=== PATIENT | female | born 2000 | race Caucasian/White ===

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

== ENCOUNTER 2024-03-20 03:00 | Inpatient (IN) | payer OTHER ==
[2024-03-20] MEDS: LACTATED RINGERS 1,000 ML IV SCH (03:10)
[2024-03-20] MEDS ORDERED: miSOPROStoL 200 MCG TAB PO PRN (03:14)
[2024-03-20] MEDS ORDERED: LIDOCAINE 0.5% (PF) 5 MG/ML (50 ML SDV) SQ PRN (03:14)
[2024-03-20] MEDS ORDERED: TRANEXAMIC 1,000 MG/100ML-NACL 1,000 MG in EMPTY BAG 1 BAG IV PRN (03:14)
[2024-03-20] MEDS ORDERED: TERBUTALINE 1 MG/ML VIAL SQ PRN (03:14)
[2024-03-20] MEDS ORDERED: OXYTOCIN 10 UNIT/ML 1 ML VIAL IM PRN (03:14)
[2024-03-20] MEDS ORDERED: METHYLERGONOVINE 0.2 MG/ML 1 ML AMP IM PRN (03:14)
[2024-03-20] MEDS ORDERED: CARBOPROST TROMETHAMINE 250 MCG/ML 1 ML AMP IM PRN (03:14)
[2024-03-20 03:34] LABS: Basophils % (A) 0 %; Eosinophils # (A) 0.2 k/uL (0-0.7); Eosinophils % (A) 1 %; HCT 30.2 % (34.0-46.0); HGB 9.9 gm/dL (11.4-16.0); Hypochromasia Slight; Lymphocytes # (A) 1.8 k/uL (1.0-4.8); Lymphocytes % (A) 13 %; MCH 27.6 pg (25.0-35.0); MCHC 32.7 g/dL (31.0-37.0); MCV 84.4 fL (80.0-100.0); Mean Platelet Volume 8.6; Monocytes # (A) 0.9 k/uL (0-1.0); Monocytes % (A) 6 %; Neutrophils # (A) 10.5 k/uL (1.3-7.7); Neutrophils % (A) 77 %; Platelet Count 279 k/uL (150-450); Poikilocytosis Slight; RBC 3.58 m/uL (3.80-5.40); RDW 15.2 % (11.5-15.5); WBC 13.7 k/uL (3.8-10.6)
[2024-03-20] MEDS ORDERED: NALBUPHINE 10 MG/ML (10 ML MDV) IV PRN (04:01)
[2024-03-20] MEDS ORDERED: OXYTOCIN 30 UNITS/500 ML NS BAG IV ONE (04:35)
[2024-03-20] MEDS ORDERED: MIDAZOLAM 2 MG/2 ML VIAL ONE (04:35)
[2024-03-20] MEDS ORDERED: fentaNYL (PF) 50 MCG/ML 2 ML AMP ONE (04:35)
[2024-03-20] MEDS ORDERED: PROPOFOL 10 MG/ML 20 ML VIAL IV ONE (04:35)
[2024-03-20] MEDS: miSOPROStoL 200 MCG TAB RECTAL PRN (05:00)
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
[2024-03-20] MEDS ORDERED: diphenhydrAMINE 50 MG/ML 1 ML VIAL IVP PRN ×2 (05:24)
[2024-03-20] MEDS ORDERED: SIMETHICONE 80 MG CHEWABLE PO PRN (05:24)
[2024-03-20] MEDS ORDERED: HYDROCORTISONE 2.5% RECTAL CREAM 30 GM TUBE RECTAL PRN (05:24)
[2024-03-20] MEDS ORDERED: diphenhydrAMINE 25 MG CAP PO PRN (05:24)
[2024-03-20] MEDS ORDERED: LANOLIN CREAM 1 GM TUBE TOPICAL PRN (05:24)
[2024-03-20] MEDS ORDERED: BENZOCAINE/MENTHOL SPRAY 1 GM/SPRAY AEROSOL TOPICAL PRN (05:24)
[2024-03-20] MEDS ORDERED: ZOLPIDEM 5 MG TAB PO PRN (05:24)
[2024-03-20] MEDS ORDERED: diphenhydrAMINE 50 MG CAP PO PRN (05:24)
--- NOTE | 2024-03-20 05:37 | P.PROBDLV ---
Vaginal Delivery Note - . Vaginal Delivery Note: Viable female delivered at 4 AM, weight of 6 pounds 3.8 ounces, Apgars of 8 and 9 at 1 and 5 minutes respectively. 3 para 1-1-0-3 presented to labor and delivery at 42 and 1 sevenths weeks with minimal care, patient had approximately 2 visits at [facility]. Patient did have a dating ultrasound giving an due date of 03/05, patient subsequently had a 19-week anatomy scan which was essentially normal with some limited findings secondary to position. Patient presented to labor and delivery stating she began rula around midnight, upon presentation to labor and delivery she was noted to be completely dilated. Patient was taken to labor and delivery suite where she began pushing, and had a successful vaginal after . The umbilical cord was doubly clamped and cut. Cord blood was then taken. Placenta was delivered in pieces, retained fundal placenta was appreciated on examination. Manual extraction was attempted after Nubain and nitrous were given to patient. I was unable to retrieve the fundal portion of the placenta therefore anesthesia was called for D&C for retained placenta. Patient was taken back to the operating suite where sedation was performed by the anesthesia department. She was prepped and draped in the normal sterile fashion in the dorsolithotomy position. A red rubber catheter was used to drain the bladder of clear yellow urine. A specimen was sent to lab for a UDS. A weighted speculum placed in the posterior vaginal vault the vaginal vault was cleared of multiple clots. The anterior lip of the cervix was visualized and grasped with a ring forcep. A sharp curette was used to remove the fundal pieces of placenta. Multiple passes of the curette were used to clear placental fragments from the uterus. Uterus was noted to be firm and below the umbilicus at this time. Lochia was noted to be appropriate for state. Upon inspection of the patient's vaginal vault a superficial labial laceration was appreciated hemostatic in nature. All instruments were removed from the patient's vaginal vault at this time. Patient was transferred back to labor and delivery suite.
--- NOTE | 2024-03-20 05:44 | P.PCN ---
Date of Procedure: 03/20/24 Preoperative Diagnosis: Retained placenta Postoperative Diagnosis: Same Procedure(s) Performed: Dilation curettage Anesthesia: MAC Surgeon: Jeannette Reed Estimated Blood Loss (ml): 300 Urine output (ml): 100 (Clear yellow via red rubber catheter) Pathology: other (Placenta) Condition: stable Disposition: observation Indications for Procedure: 24-year-old -1-0-3 that presented to labor and delivery in active labor. Patient subsequently had an successful vaginal delivery after section, placenta was noted to be adherent fundally. Upon delivery of the placenta only half was appreciated on manual extraction adherent fundal placenta was appreciated. Attempted manual extraction with nitrous and Nubain failed. Anesthesia was notified of need to proceed with D&C. Operative Findings: Adherent fundal placenta fragments appreciated on curettage Description of Procedure: Patient was taken back to the operating room where sedation was found to be adequate by the anesthesia department. She was prepped and draped in normal sterile fashion in the dorsal lithotomy position. Red recatheterized used to drain the bladder of clear yellow urine. Copious amounts of clots were removed from the patient's vaginal vault. Weighted speculum is placed in the posterior vaginal vault the Intralipid the cervix is visualized and grasped with a ring forcep. A curette was then placed through the cervix and toward the endometrial cavity multiple passes were used to remove multiple placental fragments. On manual extraction a large piece of placenta was removed followed by additional passes of the curette. The uterus was then noted to be firm and below the umbilicus. Cytotec was then placed rectally 1000 mcg. All instruments were removed from the patient's vaginal vault. On inspection the patient's vaginal vault superficial lacerations from delivery were appreciated all were hemostatic. All counts were noted be correct x 2. Patient tolerated procedure well and was taken back to her labor and delivery suite.
[2024-03-20] MEDS: OXYTOCIN 30 UNITS/500 ML NS 30 UNIT in SALINE 1 500ML.BAG IV SCH (05:45)
[2024-03-20] MEDS: LORazepam 0.5 MG TAB PO ONE (05:55)
[2024-03-20] MEDS: IBUPROFEN 800 MG TAB PO SCH (06:23)
[2024-03-20 07:12] LABS: Amphetamine Screen,Urine Detected (NotDetected); Barbiturate Screen,Urine Not Detected (NotDetected); Benzodiazepines Screen,Urine Not Detected (NotDetected); Cocaine Screen,Urine Not Detected (NotDetected); Methadone Screen, Urine Not Detected (NotDetected); Opiate Screen,Urine Detected (NotDetected); Oxycodone Screen, Urine Detected (NotDetected); Phencyclidine Screen,Urine Not Detected (NotDetected); Tricyclic Antidepressant,Urine Not Detected (NotDetected); Urn Cannabinoid Scrn Detected (NotDetected)
[2024-03-20 12:36] LABS: Basophils % (A) 0 %; Eosinophils % (A) 0 %; Hypochromasia Marked; Lymphocytes # (A) 2.4 k/uL (1.0-4.8); Lymphocytes % (A) 13 %; MCH 27.8 pg (25.0-35.0); Mean Platelet Volume 8.5; Monocytes # (A) 0.8 k/uL (0-1.0); Monocytes % (A) 5 %; Neutrophils # (A) 14.4 k/uL (1.3-7.7); Neutrophils % (A) 80 %; Platelet Count 245 k/uL (150-450); RBC 2.13 m/uL (3.80-5.40); RDW 15.5 % (11.5-15.5)
[2024-03-20 12:44] LABS: HGB 5.9 gm/dL (11.4-16.0)
[2024-03-20 12:45] LABS: HCT 18.6 % (34.0-46.0)
[2024-03-20] MEDS: SENNOSIDES-DOCUSATE SODIUM 1 EACH TAB PO SCH (13:01)
[2024-03-20] MEDS: ACETAMINOPHEN TAB 500 MG TAB PO SCH (13:01)
[2024-03-20 15:27] LABS: Hepatitis B Surface Antigen Nonreactive (Nonreactive)
[2024-03-20 20:04] LABS: HIV 2 AB Non-Reactive (Non-Reactive); HIV AB P24 Non-Reactive (Non-Reactive); HIV P24 AG Non-Reactive (Non-Reactive)
[2024-03-20 20:20] LABS: Basophils # (A) 0.1 k/uL (0-0.2); Basophils % (A) 0 %; Eosinophils # (A) 0.1 k/uL (0-0.7); Eosinophils % (A) 1 %; HCT 21.5 % (34.0-46.0); HGB 7.2 gm/dL (11.4-16.0); Hypochromasia Moderate; Lymphocytes % (A) 18 %; MCH 29.4 pg (25.0-35.0); MCHC 33.4 g/dL (31.0-37.0); MCV 87.9 fL (80.0-100.0); Mean Platelet Volume 8.5; Monocytes # (A) 0.8 k/uL (0-1.0); Monocytes % (A) 5 %; Neutrophils # (A) 12.6 k/uL (1.3-7.7); Neutrophils % (A) 74 %; Platelet Count 265 k/uL (150-450); RBC 2.44 m/uL (3.80-5.40); RDW 15.5 % (11.5-15.5); WBC 16.9 k/uL (3.8-10.6)
--- NOTE | 2024-03-21 08:45 | P.DS ---
Providers Date of admission: 03/20/24 03:14 Expected date of discharge: 03/21/24 Attending physician: Jeannette Reed Primary care physician: Stated None Hospital Course: Ms. Alvarado is a 24 year old now PPD#1 s/p vaginal delivery complicated by retained products of conception requiring D&C. Her immediate course was also complicated by hemorrhage for which she received IV oxytocin and Methergine. Her hemoglobin did drop from 9 to 5. She received 1 unit of packed RBCs and her Hgb is 7 now. She is asymptomatic, vital signs are stable. She does desire discharge home today. The patient is doing well this morning and had no acute events overnight. She has no complaints this morning. She reports minimal lochia, passing flatus, voiding without difficulty, ambulating, and eating/drinking without nausea or vomiting. is in the nursery for abstinence syndrome, likely for several days. She denies chest pain, shortness of breathing, fevers, or chills overnight. She denies pain or swelling in the legs. restrictions are reviewed with the patient including pelvic rest for 6 weeks. The patient is encouraged to call the office if she experiences any heavy bleeding, foul-smelling discharge, breast complaints, or any if she has any other concerns. She will follow up in the office with Dr. Saleh in 6 weeks for exam. She will have Motrin, Tylenol, iron, and stool softeners sent to her pharmacy. All questions are answered. Assessment: 24 year old now PPD#1 s/p vaginal delivery complicated by retained products and hemorrhage Patient Condition at Discharge: Good Plan - Discharge Summary New Discharge Prescriptions: New Ferrous Sulfate [Iron (65 MG Elemental)] 325 mg PO DAILY #30 tab Ibuprofen [Motrin] 600 mg PO Q6HR PRN #30 tab PRN Reason: Mild Pain (Scale 1 To 3) Acetaminophen Tab [Tylenol] 650 mg PO Q6H PRN #30 tab PRN Reason: Mild Pain (Scale 1 To 3) Docusate [Colace] 100 mg PO BID PRN #60 capsule PRN Reason: Constipation No Action HYDROcodone/APAP 5-325MG [[place] 5-325] 5 mg PO DAILY Discharge Medication List HYDROcodone/APAP 5-325MG [[place] 5-325] 5 mg PO DAILY 03/20/24 [History] Acetaminophen Tab [Tylenol] 650 mg PO Q6H PRN #30 tab 03/21/24 [Rx] Docusate [Colace] 100 mg PO BID PRN #60 capsule 03/21/24 [Rx] Ferrous Sulfate [Iron (65 MG Elemental)] 325 mg PO DAILY #30 tab 03/21/24 [Rx] Ibuprofen [Motrin] 600 mg PO Q6HR PRN #30 tab 03/21/24 [Rx] Follow up Appointment(s)/Referral(s): Stan Saleh MD [STAFF PHYSICIAN] - 6 Weeks Activity/Diet/Wound Care/Special Instructions: Instructions 1. Do not begin any exercise program for 3 weeks. 2. Do not resume sexual relations for 6 weeks or longer if uncomfortable. 3. You may take tub baths or showers at any time. 4. You may use tampons if desired after 6 weeks. 5. Keep any areas repaired with stitches clean and dry. 6. If you are not nursing, wear a good fitting, supportive bra during the day and limit fluid intake for at least 1 week to prevent breast engorgement. 7. Call the office, , within the next week to make appointment for your 6 week checkup if it has not already been made. 8. Report any of the following occurrences to the doctor promptly: a. Heavy, excessive bleeding b. Chills, fever c. Burning or frequency of urination d. Pain or redness and breasts if nursing e. Increasing pain or swelling of vulva (stitches). In addition to the above instructions, the following additional should be followed: 1. No heavy lifting or straining (exercising) until after 6 week checkup. 2. Keep abdominal incision clean and dry: You may wear a dressing if more comfortable. 3. Make office appointment for 2 weeks after delivery date. Discharge/Stand Alone Forms: Who Do I Call?, Outpatient Counseling, Area PCPs Discharge Disposition: HOME SELF-CARE
[2024-03-21 09:25] VITALS: BP 111/65; PULSE 95; RESP 18; TEMP 98.9
--- NOTE | 2024-03-23 19:13 | P.MSEPDOC ---
Presenting Problems - Arrival Data Date of Arrival on Unit: 03/20/24 Time of Arrival on Unit: 03:14 Mode of Transport: Ambulatory - Complaint OB-Reason for Admission/Chief Complaint: Possible Onset of Labor Comment: Patient arrived from home stating she is in labor, patient states that she lost her mucus plug earlier today and started rula regularly at 0000. Patient states she is bleeding vaginally and pain with contractions is 10/10. Patient states she seen DR. Saleh for care. Patient admited to norco and marijuana use in . Patient stated she just stopped seeing Dr. Sandhu two weeks ago. Medical History - Information : 3 Para: 3 Term: 1 : 2 Abortions: Spontaneous or Elective: 0 Number of Living Children: 3 - Gestational Age Gestational Age by SALLY (wks/days): 42 Weeks and 1 Days - History Comment: Patient arrived from home stating she is in labor, patient states that she lost her mucus plug earlier today and started rula regularly at 0000. Patient states she is bleeding vaginally and pain with contractions is 10/10. Patient states she seen DR. Saleh for care. Review of Systems - Review of Systems Constitutional: No problems Breast: No problems ENT: No problems Cardiovascular: No problems Respiratory: No problems Gastrointestinal: No problems Genitourinary: No problems Musculoskeletal: No problems Neurological: No problems Skin: No problems Vital Signs - Temperature Temperature: 98.9 F Temperature Source: Oral - Pulse Right Brachial Pulse Rate: 95 Pulse Assessment Method: Pulse Oximetry - Respirations Respiratory Rate: 18 Oxygen Delivery Method: Room Air O2 Sat by Pulse Oximetry: 99 - Blood Pressure Right Arm Blood Pressure: 111/65 Blood Pressure Mean: 80 Blood Pressure Source: Automatic Cuff Medical Screen Scoring - Cervical Exam Dilation (cm): 10 Effacement (%): 100 Station: -1 Membranes: Intact - Uterine Contractions Frequency From (mins): 4 Frequency To (mins): 6 Duration From (seconds): 60 Duration To (seconds): 80 Intensity: Strong Resting: Soft to palpation - Assessment - Baby A Baseline FHR: 110 Heart Rate - NICHD Category: Category I (Normal) NST: Reactive Physician Notification - Physician Notified New Order Received: Yes - Notification Comment Comment: Dr. Reed on her way into [facility]. Maternal Triage Index - Non-Urgent/Priority 4 Non-Urgent Priority 4: Yes Criteria Met for Priority 4: Patient arrived from home stating she is in labor, patient states that she lost her mucus plug earlier today and started rula regularly at 0000. Patient states she is bleeding vaginally and pain with contractions is 10/10. Patient states she seen DR. Saleh for care. Disposition - Disposition OB Disposition: Admit Discharge Date: 03/21/24 Discharge Time: 12:30 I agree with the RN Medical Screening Exam: Yes Case reviewed; plan agreed upon as documented in EMR&OBIX.: Yes Diagnosis: OTHER SPECIFIED COMPLICATIONS OF LABOR AND DELIVERY
[2024-03-24 12:00] LABS: C. trachomatis,PCR Negative (Negative); N. gonorrhoeae,PCR Negative (Negative)
== END 2024-03-21 12:30 | disposition home or self-care (01) | DRG 797 ==
LOC: FBPOP 03:00 → 4FBP 03:14
PROVIDERS: ADMIT Obstetrics & Gynecology Obstetrics; ATTEND Obstetrics & Gynecology Obstetrics
PROC: 10D17ZZ Extraction of Products of Conception, Retained, Via Natural or Artificial Opening (ICD-10-PCS; 2024-03-20)
PROC: 0HQ9XZZ Repair Perineum Skin, External Approach (ICD-10-PCS; 2024-03-20)
PROC: 10907ZC Drainage of Amniotic Fluid, Therapeutic from Products of Conception, Via Natural or Artificial Opening (ICD-10-PCS; 2024-03-20)
PROC: 4A0HXCZ Measurement of Products of Conception, Cardiac Rate, External Approach (ICD-10-PCS; 2024-03-20)
PROC: 10E0XZZ Delivery of Products of Conception, External Approach (ICD-10-PCS; principal; 2024-03-20 04:30)
DX: O76 Abnormality in fetal heart rate and rhythm complicating labor and delivery (principal); O72.1 Other immediate postpartum hemorrhage; Z37.0 Single live birth; O48.1 Prolonged pregnancy; O70.0 First degree perineal laceration during delivery; E66.01 Morbid (severe) obesity due to excess calories; O30.003 Twin pregnancy, unspecified number of placenta and unspecified number of amniotic sacs, third trimester; O99.214 Obesity complicating childbirth; O9A.42 Sexual abuse complicating childbirth; O99.334 Smoking (tobacco) complicating childbirth; F17.210 Nicotine dependence, cigarettes, uncomplicated; Z37.2 Twins, both liveborn; Z3A.42 42 weeks gestation of pregnancy; Z82.5 Family history of asthma and other chronic lower respiratory diseases
CPT/HCPCS: 80306; 85025; 86762; 86780; 86803; 86850; 86900; 86901; 86920; 87340; 87390; 87491; 87591; 99213